=== PATIENT | male | born 1990 | race Two or more races ===

== ENCOUNTER 2022-05-13 06:53 | Inpatient (IN) | payer OTHER ==
[~2022-05-13] VITALS: Ht 180.3 cm; Wt 133.8 kg
[2022-05-13] MEDS ORDERED: ONDANSETRON 4 MG/2 ML VIAL IV ONE (07:15)
[2022-05-13] MEDS ORDERED: PANTOPRAZOLE SODIUM 40 MG VIAL IV ONE (07:15)
[2022-05-13] MEDS ORDERED: MAG HYDROX/AL HYDROX/SIMETH 30 ML LIQUID UDC PO ONE (07:15)
[2022-05-13] MEDS ORDERED: IV NORMAL SALINE 1000 ML BAG IV ONE (07:15)
[2022-05-13] MEDS ORDERED: LIDOCAINE VISCUS 2% 15 ML UDC MM ONE (07:15)
[2022-05-13] MEDS ORDERED: ONDANSETRON 4 MG/2 ML VIAL ONE (07:26)
[2022-05-13] MEDS ORDERED: MAG HYDROX/AL HYDROX/SIMETH 30 ML LIQUID UDC ONE (07:27)
[2022-05-13] MEDS ORDERED: PANTOPRAZOLE SODIUM 40 MG VIAL ONE (07:27)
[2022-05-13] MEDS ORDERED: LIDOCAINE VISCUS 2% 15 ML UDC ONE (07:27)
[2022-05-13] MEDS ORDERED: KETOROLAC TROMETHAMINE 15 MG INJ IVP ONE (07:30)
[2022-05-13 07:34] LABS: HEMATOCRIT 42.5 % (36.7-47.1); MEAN CORPUSCULAR HEMOGLOBIN 30.8 uug (23.8-33.4); MEAN CORPUSCULAR VOLUME 90.5 fL (73.0-96.2); PLATELET COUNT (AUTO) 145 K/uL (152-348)
[2022-05-13] MEDS ORDERED: KETOROLAC TROMETHAMINE 15 MG INJ ONE (07:39)
--- NOTE | 2022-05-13 07:44 | NUR ---
PATIENT C/O RIGHT LOWER ABDOMINAL PAIN. ME AND ANOTHER RN TRIED SEVERAL TIMES TO PLACE IV AND WERE UNSUCCESSFUL, THEREFORE TORADOL WAS CHANGED TO IM. THEN JOSSELYN MENDEZ WAS ABLE TO PLACE IV ON WRIST AND I GAVE IV MEDS ORDERED.
[2022-05-13 07:46] LABS: CREATININE 1.3 mg/dL (0.6-1.3); POTASSIUM 3.8 mmol/L (3.5-5.1)
[2022-05-13] MEDS ORDERED: KETOROLAC TROMETHAMINE 30 MG INJ ONE (07:50)
[2022-05-13 07:55] LABS: BILIRUBIN,DIRECT 0.1 mg/dL (0.0-0.2); BILIRUBIN,TOTAL 0.2 mg/dL (0.2-1.0); TOTAL PROTEIN, SERUM 8.3 g/dL (6.4-8.2)
[2022-05-13] MEDS ORDERED: KETOROLAC TROMETHAMINE 30 MG INJ IM ONE (08:00)
[2022-05-13] MEDS ORDERED: MORPHINE SULFATE 4 MG/1 ML DISP.SYRIN ONE ×2 (08:09→08:47)
[2022-05-13] MEDS ORDERED: MORPHINE SULFATE 4 MG/1 ML DISP.SYRIN IV ONE ×2 (08:15→08:45)
--- NOTE | 2022-05-13 09:10 | NUR ---
PATIENT STATES PAIN DECREASED AFTER THE FIRST MORPHINE BUT PAIN IS RETURNING, DR RODRIGES AWARE, I GAVE AN ADDITIONAL DOSE OF MORPHINE PER ORDER. VITAL SIGNS STABLE. PATIENT AWARE TO REMAIN NPO
[2022-05-13] MEDS ORDERED: CEFTRIAXONE 1 G in IV DEXTROSE 5% 50 ML IV SCH (09:45)
[2022-05-13] MEDS ORDERED: CEFTRIAXONE /D5W 50ML IVPB **ER PYXIS IV ONE (10:07)
--- NOTE | 2022-05-13 10:23 | NUR ---
Patient states the last time he ate was "last night" before midnight.
--- NOTE | 2022-05-13 11:51 | NUR ---
Patient aware of pending surgery today at 1700. He will remain NPO. He signed the surgical consent. Awaiting for bed assignment on M/S floor
--- NOTE | 2022-05-13 12:09 | NUR ---
covid swab sent to lab
--- NOTE | 2022-05-13 12:22 | NUR ---
report given to Ingrid MENDEZ.
[2022-05-13] MEDS ORDERED: BUPIVACAINE/EPI PF 0.5% 10 ML VIAL ONE (12:50)
--- NOTE | 2022-05-13 13:01 | NUR ---
Pt. admitted to MED SURG UNIT , under care of Dr. Waller for C/O of abdominal pain RUQ Dx:Gallstones Belongs List completed Pt admitted in stable condition from ER wheel in a W/C , denied any pain/discomfort. No n/v/d. Denied SINGH/dizziness. Pt schedule for EGD ,Laparoscopy Cholecystectomy with Possible open exploratory Laparotomy consent was sign Pre Op list in place .Pt IV site at left wrist # 22 intact Pt remain NPO since midnight
[2022-05-13] MEDS ORDERED: LEVO200T9 PO (13:39)
[2022-05-13 15:58] VITALS: BP 111/63
--- NOTE | 2022-05-13 16:47 | NUR ---
Pt was transferred to OR in a hospital bed by 2 Or nurses for a s EGD Laparoscopy Cholecystectomy by Dr Ferrell
[2022-05-13] MEDS ORDERED: SUCCINYLCHOLINE CHLORIDE 200 MG/10 ML VIAL ONE (16:56)
[2022-05-13] MEDS ORDERED: ROCURONIUM BROMIDE 50 MG/5 ML VIAL ONE ×2 (16:56→17:51)
[2022-05-13] MEDS ORDERED: FENTANYL CITRATE 100 MCG/2 ML AMPUL ONE ×2 (16:56→19:39)
[2022-05-13] MEDS ORDERED: IV LACTATED RINGERS SOLUTION 1,000 ML IV PRN ×2 (19:45→20:30)
[2022-05-13] MEDS ORDERED: HYDROMORPHONE 2 MG/1 ML DISP.SYRIN IV PRN (19:45)
[2022-05-13] MEDS ORDERED: HYDROCODONE/APAP 10-325 MG TABLET PO PRN ×3 (19:45→20:45)
[2022-05-13] MEDS ORDERED: ONDANSETRON 4 MG/2 ML VIAL IV PRN ×3 (19:45→20:45)
--- NOTE | 2022-05-13 19:50 | NUR ---
Patient still at surgery unit at this time.
[2022-05-13 20:00] VITALS: BP 130/82
--- NOTE | 2022-05-13 20:20 | NUR ---
patient back to his room from surgery, s/p lap cholecystectomy with EGD. Asleep at this time. Family at bedside. With O2 at 3LPM via NC in place. In no apparent distress. No signs or symptoms of pain. IVF infusing to right upper arm midline. RAMONE drain on right abdominal area, with scant amount of serosanguineous drainage at this time. 3 incision site with dressing intact. Incentive spirometer provided. Teach and train on how to use and states understanding. Continue to monitor.
[2022-05-13] MEDS ORDERED: HYDROMORPHONE 2 MG/1 ML DISP.SYRIN IM PRN (20:30)
[2022-05-13] MEDS ORDERED: ZOLPIDEM 5 MG TABLET PO PRN (20:45)
[2022-05-13] MEDS ORDERED: IV D5/ 0.9% NACL 1,000 ML IV PRN (20:45)
[2022-05-13] MEDS ORDERED: ACETAMINOPHEN 325 MG TABLET PO PRN (20:45)
[2022-05-13] MEDS ORDERED: HYDROMORPHONE 1 MG/1 ML DISP.SYRIN IV PRN (20:45)
[2022-05-14 04:00] VITALS: BP 108/71
[2022-05-14] MEDS: PANTOPRAZOLE SODIUM 40 MG TABLET.DR PO SCH (06:05)
--- NOTE | 2022-05-14 06:12 | NUR ---
Patient slept well. Did not complain of any SOB. Dilaudid 1mg given for complain of abd pain and effective. Remains on O2 at 3LPM via NC. O2 sat at 97%. RAMONE drain remains intact and patent. With 12ml serosanguineous drainage. Midline on left upper arm intact and patent. IVF infusing. Encourage to use incentive spirometer. Needs attended to and met. Safety measure maintained and call light within reached.
[2022-05-14 06:33] LABS: HEMATOCRIT 38.2 % (36.7-47.1); MEAN CORPUSCULAR HEMOGLOBIN 31.2 uug (23.8-33.4); MEAN CORPUSCULAR VOLUME 90.6 fL (73.0-96.2); PLATELET COUNT (AUTO) 129 K/uL (152-348)
[2022-05-14 06:50] LABS: BILIRUBIN,TOTAL 0.5 mg/dL (0.2-1.0); CREATININE 1.1 mg/dL (0.6-1.3); MAGNESIUM 2.2 mg/dL (1.8-2.4); PHOSPHOROUS 3.9 mg/dL (2.5-4.9); POTASSIUM 3.7 mmol/L (3.5-5.1); TOTAL PROTEIN, SERUM 7.4 g/dL (6.4-8.2)
--- NOTE | 2022-05-14 09:28 | NUR ---
Pt is currently asleep, no signs of acute distress. Comfort measures provided, call ligth within reach, will continue to monitor.
[2022-05-14] MEDS ORDERED: CEFTRIAXONE 2 G in IV DEXTROSE 5% 100 ML IV SCH (10:00)
[2022-05-14] MEDS: PIPERACILLIN SODIUM/TAZOBACTAM 3.375 G in IV DEXTROSE 5% 100 ML IV SCH ×2 (11:02→18:45)
[2022-05-14 11:13] VITALS: BP 119/73
--- NOTE | 2022-05-14 12:50 | NUR ---
Dr. Lopez saw patient, new fluid orders inputted. Notified MD of no urination since surgery. Will ambulate pt, if no result will insert zaragoza catheter per MD order.
[2022-05-14] MEDS ORDERED: IV LACTATED RINGERS SOLUTION 1,000 ML IV PRN (13:00)
--- NOTE | 2022-05-14 13:08 | NUR ---
Pt reported having urinated. Pt urinated about 860cc of clear yellow/ tea colored urine. Will send in urine sample and notify .
[2022-05-14 13:29] LABS: *BILIRUBIN,URIN NEGATIVE (NEGATIVE); *BLOOD, URINE NEGATIVE (NEGATIVE); *CLARITY,URINE CLEAR (CLEAR); *COLOR,URINE YELLOW (YELLOW); *KETONES,URINE NEGATIVE (NEGATIVE); *UROBILINOGEN,URINE 0.2 E.U./dl (NORMAL); LEUKOCYTE ESTERASE ,URINE NEGATIVE (NEGATIVE); NITRITE, URINE NEGATIVE (NEGATIVE); PH,URINE 6.5 (5.0-8.0); UGLUCOSE NEGATIVE (NEGATIVE)
[2022-05-14] MEDS: ACETAMINOPHEN 325 MG TABLET PO SCH ×2 (13:55→21:31)
[2022-05-14] MEDS: IBUPROFEN 800 MG TABLET PO SCH ×2 (13:56→21:31)
[2022-05-14] MEDS: GABAPENTIN 300 MG CAPSULE PO SCH ×2 (13:56→21:31)
[2022-05-14 15:09] VITALS: BP 133/67
--- NOTE | 2022-05-14 19:16 | NUR ---
Changed dressing, took picture and sent to Dr. Lopez. Per MD antibiotic cream should be applied around the exit site of the RAMONE drain and the covered with sterile dressing. Advanced diet per MD order. Will endorse to mold shifter.
[2022-05-14] MEDS ORDERED: BACITRACIN ZINC OINT 15 GM TUBE TOP PRN (19:30)
[2022-05-14 20:00] VITALS: BP 128/65
[2022-05-15] MEDS: IV LACTATED RINGERS SOLUTION 1,000 ML IV PRN ×2 (02:32→02:35)
[2022-05-15] MEDS: PIPERACILLIN SODIUM/TAZOBACTAM 3.375 G in IV DEXTROSE 5% 100 ML IV SCH ×2 (02:35→11:20)
[2022-05-15 04:00] VITALS: BP 99/53
[2022-05-15] MEDS: ACETAMINOPHEN 325 MG TABLET PO SCH ×2 (05:43→13:51)
[2022-05-15] MEDS: IBUPROFEN 800 MG TABLET PO SCH ×2 (05:43→13:51)
[2022-05-15] MEDS: GABAPENTIN 300 MG CAPSULE PO SCH ×2 (05:43→13:51)
[2022-05-15] MEDS: PANTOPRAZOLE SODIUM 40 MG TABLET.DR PO SCH (06:09)
[2022-05-15 06:37] LABS: HEMATOCRIT 38.5 % (36.7-47.1); MEAN CORPUSCULAR HEMOGLOBIN 31.3 uug (23.8-33.4); MEAN CORPUSCULAR VOLUME 91.8 fL (73.0-96.2); PLATELET COUNT (AUTO) 126 K/uL (152-348)
[2022-05-15 07:06] LABS: BILIRUBIN,TOTAL 0.5 mg/dL (0.2-1.0); CREATININE 1.1 mg/dL (0.6-1.3); PHOSPHOROUS 3.8 mg/dL (2.5-4.9); POTASSIUM 3.7 mmol/L (3.5-5.1); TOTAL PROTEIN, SERUM 7.4 g/dL (6.4-8.2)
[2022-05-15 11:25] VITALS: BP 131/63
[2022-05-15 15:17] VITALS: BP 115/55
[2022-05-15] MEDS ORDERED: HYDR-4209 PO (15:44)
[2022-05-15] MEDS ORDERED: PANT40TA2 PO (15:47)
--- NOTE | 2022-05-15 18:30 | NUR ---
Discharged to home w/ RAMONE drain as ordered, to follow up with Dr. Lopez on 05/18/22. RAMONE drain teaching provided to patient with good understanding. RAMONE emptied prior to discharge able to drain 15 ML sanguineous discharge. Patient left in stable condition via private car accompanied by mother. No acute distress, no chest pain. Surgical wound with staple intact, no bleeding noted, dressing changed. Belongings and valuables accounted for and given to patient. Discharge papers provided with instructions to follow up with surgeon.
== END 2022-05-15 18:30 | disposition home or self-care (01) | DRG 417 ==
LOC: ER 07:04 → MEDSURG3 12:32
PROVIDERS: ADMIT Internal Medicine; ATTEND Internal Medicine
PROC: 0FT44ZZ Resection of Gallbladder, Percutaneous Endoscopic Approach (ICD-10-PCS; principal; 2022-05-13)
PROC: 0DJ08ZZ Inspection of Upper Intestinal Tract, Via Natural or Artificial Opening Endoscopic (ICD-10-PCS; 2022-05-13)
PROC: 05H633Z Insertion of Infusion Device into Left Subclavian Vein, Percutaneous Approach (ICD-10-PCS; 2022-05-13)
PROC: B547ZZA Ultrasonography of Left Subclavian Vein, Guidance (ICD-10-PCS; 2022-05-13)
DX: K80.00 Calculus of gallbladder with acute cholecystitis without obstruction (principal); N17.0 Acute kidney failure with tubular necrosis; Z68.41 Body mass index [BMI] 40.0-44.9, adult; K82.A2 Perforation of gallbladder in cholecystitis; E66.01 Morbid (severe) obesity due to excess calories; E03.9 Hypothyroidism, unspecified; K76.0 Fatty (change of) liver, not elsewhere classified; K60.2 Anal fissure, unspecified; E78.5 Hyperlipidemia, unspecified; Z20.822 Contact with and (suspected) exposure to COVID-19
CPT/HCPCS: 36415; 71045; 83690; 83735; 84100; 85025; 93005; A4663; C9113; G0378; J0330; J0696; J1170; J1885; J2270; J2405; J2543; J3010; J3490; J7040; J7042; J7120